=== PATIENT | male | born 1965 | race Two or more races ===

== ENCOUNTER 2018-03-27 09:27 | Emergency (ER) | payer OTHER ==
[2018-03-27] MEDS ORDERED: TDAP ADULT 0.5 ML INJ (BOOSTRIX) IM ONE (10:12)
--- NOTE | 2018-03-27 10:13 | EDPHY ---
General - History Smoking Status: Never smoked Time Seen by Provider: 03/27/18 10:03 Narrative: CHIEF COMPLAINT: Left index finger laceration HISTORY OF PRESENT ILLNESS: Patient presents with complaints of left index finger laceration. He was using a blade to cut some coating off of a wire just prior to arrival when he accidentally cut his left index finger. This is over the crease of the DIP joint on the left hand, palmar. Moderate bleeding but no numbness, tingling or weakness. No difficulty bending or straightening the finger. This was done while at work. He is right-hand dominant. Tetanus status in question. No other associated complaints or modifying factors. TIME OF INJURY: Less than 1 hr prior to arrival TETANUS STATUS: Updated here MEDICAL/SURGICAL/SOCIAL HISTORY: Uncomplicated medical history. REVIEW OF SYSTEMS: Ten systems reviewed and are negative unless otherwise noted in the HPI EXAMINATION General Appearance: Alert, no distress Head: normocephalic, atraumatic Cardiovascular: Symmetric radial pulses 2+. There is brisk cap refill in the fingers left hand. Neurological: A&O, 2 point sensation intact in left index finger. 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 Skin: Warm and dry, no rash. There is a 1.25 cm laceration to left index finger, palmar over the DIP. No pulsatile bleeding. No flexor tendon injury. Neuro intact distally Extremities: Tenderness over the area of laceration. There is full flexion of the left index finger including superficialis and profundus. Neurovascular intact distally. Good strength of the interossei. DIFFERENTIAL DIAGNOSES: Including but not limited to laceration, laceration with tendon injury, complex laceration, MDM: 10:12 a.m. Laceration to the palmar aspect the left index finger over the PIP. No evidence of tendon injury. No evidence of vascular injury. Neurovascular intact. I have administered a digital block. Proceed with irrigation closure. We will update his tetanus status. 11:15 a.m. Wound has been irrigated and re-evaluated. I do not appreciate any foreign body. Laceration has been closed without difficulty. Full flexion extension retained pre and postprocedure. We will be placing him in a tube gauze and finger splint due to the location of the laceration. I would like him to contact his worker's compensation Clinic. I would like him to return here in 7- 10 days for suture removal. He is comfortable this plan and discharged home stable condition. PROCEDURE: Laceration repair Consent: Verbal Location: Left index finger DIP palmar Length of repair: 1.25 cm Complexity: Simple Layer involvement: Single Anesthesia: Digital block as below Irrigation: Extensive Debridement: None Procedure description: Following good anesthesia, the wound was copiously irrigated. Wound bed was explored with a sterile glove, and there is no foreign body noted. Wound borders were approximated well with good hemostasis. Tolerated well without complication. Suture/Staple material: 5-0 Prolene, 4 simple interrupted sutures Wound care: Routine as discussed Suture/Staple removal: 7-10 Days PROCEDURE: Digital Block Indication: Finger laceration Consent: Verbal Location: left index finger Anesthesia: Lidocaine 1% plain, 0.25% Marcaine plain, 5mL Description: Base of the finger was prepped. The above was infused without difficulty. Tolerated well. Good anesthesia. Complications: None SUPERVISION: This patient was independently evaluated without direct involvement of or examination by the attending physician. ED Precautions: Worsening pain. Erythema, edema, cyanosis, pallor, paresthesia or anesthesia. (Edwin Hardy) The patient was evaluated and managed by the physician assistant terminal manager. I have reviewed this chart and I agree with the findings and plan of care as documented , as indicated by my signature. I am the secondary supervising physician. ( Deb Osullivan) - Objective Vital Signs: Initial Vital Signs Temperature (C) 36.5 C 03/27/18 09:28 Heart Rate 76 03/27/18 09:28 Respiratory Rate 18 03/27/18 09:28 Blood Pressure 138/81 H 03/27/18 09:28 O2 Sat (%) 96 03/27/18 09:28 O2 Delivery Mode Room Air Allergies/Adverse Reactions: No Known Allergies Allergy (Unverified 03/27/18 09:31) Home Medications: Medication Instructions Recorded NK [No Known Home Meds] 03/27/18 Medications Given: Discontinued Medications Diphtheria/Tetanus/Acell Pertussis (Boostrix) 0.5 ml IM .ONCE ONE Stop: 03/27/18 10:13 Last Admin: 03/27/18 10:44 Dose: 0.5 ml Departure - Departure Disposition: Home, Routine, Self-Care Clinical Impression: Laceration of left index finger without damage to nail Condition: Good Instructions: Care For Your Stitches (ED), Laceration (ED) Additional Instructions: 1. Daily wound care as discussed. 2. Finger splint in place until sutures removed 3. Follow up with worker's compensation for definitive care 4. Return here in 7-10 days for suture removal or sooner for any signs of infection as discussed Referrals: Physician,Emergency Dept, [Medical Doctor] - As per Instructions (7-10 days for suture removed) Stand Alone Forms: Work Comp Follow Up
[2018-03-27 11:54] VITALS: BP 125/68
== END 2018-03-27 11:54 | disposition home or self-care (01) ==
LOC: SUPCPDRO 09:27
PROC: 0HQGXZZ Repair Left Hand Skin, External Approach (ICD-10-PCS; principal; 2018-03-27)
DX: S61.211A Laceration without foreign body of left index finger without damage to nail, initial encounter (principal); Z23 Encounter for immunization; W26.8XXA Contact with other sharp object(s), not elsewhere classified, initial encounter; Y99.0 Civilian activity done for income or pay; Y93.89 Activity, other specified
CPT/HCPCS: L3925